=== PATIENT | female | born 1995 | race Caucasian/White ===

== ENCOUNTER → 2020-02-05 | Emergency (ER) | payer MEDICAID, OTHER ==
[~2020-02-05] VITALS: Ht 162.6 cm; Wt 92.1 kg
[~2020-02-05] MED LIST: KETOROLAC TROMETH 60MG/2ML VIAL IM ONE; cefTRIAXone SOD 1,000 MG VL IM ONE
[2020-02-05 01:48] VITALS: BP 122/59
[2020-02-05 02:35] LABS: Urine Bacteria FEW /hpf (None Seen); Urine Blood 1+ /uL (Negative); Urine Mucus FEW (None Seen); Urine WBC 60 /hpf (0 - 5)
== END | disposition home or self-care (01) ==
LOC: ER 00:42
DX: N39.0 Urinary tract infection, site not specified (principal); M54.5 Low back pain; Z32.02 Encounter for pregnancy test, result negative
CPT/HCPCS: 71046; 81001; 81025; 87086; 96372; 99284; J0696; J1885